=== PATIENT | female | born 1950 | race Caucasian/White ===

== ENCOUNTER 2022-05-04 02:41 | Emergency (ER) | payer MEDICARE, BC ==
[~2022-05-04] VITALS: Ht 154.9 cm; Wt 60.3 kg
--- NOTE | 2022-05-04 02:42 | NUR ---
[id number]. NOSE BLEEDING STARTED @ 2330; NO ACTIVE BLEEDING UPON TRIAGE. REPORTS HAVING SYNCOPAL EPISODE HAD A NASAL PROCEDURE DONE TUESDAY LAST WEEK. PT A/OX4. TOLERATING R/A WELL WITH NO SOB. SAFETY MEASURES IN PLACE.
--- NOTE | 2022-05-04 02:57 | NUR ---
BEBA FROM HOME TO ER BED 11. AAOX4. NOT IN RESP DISTRESS. BROUGHT IN FOR NOSE BLLEED AND FAINTING. PER PT SHE HAD A PROCEDURE DONE ON HER NOSE. BLEEDING STARTED AFTER SHE SNEEZED EARLIER WHEN IT STARTED. PT ENDORSES THAT SHE FAINTED AND CONCERNED THAT SHE MIGHT HAVE LOST A LOT OF BLOOD. AWAITING MD FOR MELINDA
--- NOTE | 2022-05-04 03:00 | NUR ---
PRICING INTERN AT PT'S BEDSIDE
[2022-05-04 03:20] LABS: BASOPHILS % (AUTO) 0.3 % (0.0-2.0); HEMATOCRIT 29 % (33-45); HEMOGLOBIN 9.7 g/dL (11.5-14.8); LYMPHOCYTES % (AUTO) 13.8 % (20.0-44.0); MEAN CORPUSCULAR HGB CONC 33 g/dl (31.0-36.0); MEAN CORPUSCULAR VOLUME 91 fL (82-100); MONOCYTES # (AUTO) 0.8 K/uL (0.1-1.30); MONOCYTES % (AUTO) 5.5 % (2.0-12.0); NEUTROPHILS # (AUTO) 11.6 K/uL (1.8-8.9); NEUTROPHILS % (AUTO) 79.4 % (43.0-81.0); PLATELET COUNT (AUTO) 176 K/uL (150-450); RED BLOOD CELL COUNT(AUTO) 3.24 MIL/uL (4.0-5.2); WHITE BLOOD COUNT (AUTO) 14.5 K/uL (4.3-11.0)
--- NOTE | 2022-05-04 03:24 | NUR ---
DR. MIRA CURTIS AT PT'S BEDSIDE
[2022-05-04 03:26] LABS: CARBON DIOXIDE 30 mmol/L (21-32); CHLORIDE 105 mmol/L (98-107); GLUCOSE 145 mg/dL (74-106); POTASSIUM 3.5 mmol/L (3.5-5.1); SODIUM SERUM 140 mmol/L (136-145); UREA NITROGEN, BLOOD 29 mg/dL (7-18)
[2022-05-04] MEDS: IV NS 0.9% 1,000 ML IV ONE (05:07)
[2022-05-04 05:45] VITALS: BP 112/68
--- NOTE | 2022-05-04 05:45 | NUR ---
Patient discharged to home in stable condition. Written and verbal after care instructions given. Patient verbalizes understanding of instruction. IV removed. Catheter intact and site benign. Pressure and 4x4 applied to site. No bleeding noted. PT ambulatory with a steady gait
== END 2022-05-04 05:47 | disposition home or self-care (01) ==
LOC: ER 02:43
DX: R04.0 Epistaxis (principal); I10 Essential (primary) hypertension; E78.5 Hyperlipidemia, unspecified
CPT/HCPCS: 36415; 80048; 85025; 96360; 99283; J7030